=== PATIENT | male | born 1980 | race Caucasian/White ===

== ENCOUNTER 2016-11-16 08:13 | Emergency (ER) | payer BC, OTHER ==
[2016-11-16 08:19] VITALS: BP 132/79; PULSE 78; TEMP 98.2; BMI 23.1
[2016-11-16] MEDS ORDERED: KETOROLAC TROMETHAMINE 60 MG/2 ML VIAL IM ONE (08:58)
[2016-11-16] MEDS ORDERED: CYCLOBENZAPRINE HCL 10 MG TABLET (FP) PO ONE (08:58)
--- NOTE | 2016-11-16 08:58 | PDOC ---
History of Present Illness - General Chief Complaint: Pain Stated Complaint: Head/Neck problem Time Seen by Provider: 11/16/16 08:48 History Source: Patient Exam Limitations: No Limitations - History of Present Illness Initial Comments: 11/16/16 08:49 c/o pain and spasm to neck since last PM. was working yesterday turned and felt sort of a crack/pop to the right side of his neck muscles. States pain is preventing him from turning his head, was unable to sleep last night and has some radiating pain to his right shoulder and can radiate down to his back scapula. States pain is primarily on the right side, but has some translate pain to the left neck musculature also. 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 11/16/16 08:59 Occurred: reports: yesterday Severity: reports: moderate Pain Location: reports: back, neck Modifying Factors: improves with: None, pain medication Loss of Consciousness: no loss of consciousness Associated Symptoms (Fall): denies symptoms Past History - Travel Traveled outside of the country in the last 30 days: No Close contact w/someone who was outside of country & ill: No - Past Medical History Allergies/Adverse Reactions: Allergies Allergy/AdvReac Type Severity Reaction Status Date / Time No Known Allergies Allergy Verified 11/16/16 08:19 Home Medications: Ambulatory Orders Cyclobenzaprine HCl [Flexeril 10 mg] 10 mg PO BID PRN #14 tablet 11/16/16 Other medical history: NONE - Psycho/Social/Smoking Cessation Hx Anxiety: No Suicidal Ideation: No Smoking History: Never smoked Hx Alcohol Use: Yes (SOCIAL) Drug/Substance Use Hx: No Substance Use Type: None Review of Systems - Review of Systems Able to Perform ROS?: Yes Is the patient limited Urdu proficient: Yes Constitutional: Yes: Symptoms Reported, See HPI, Malaise. No: Chills, Fever HEENTM: Yes: See HPI. No: Symptoms Reported Respiratory: Yes: See HPI. No: Symptoms reported, Cough Musculoskeletal: Yes: Symptoms Reported, See HPI, Back Pain, Muscle Pain, Muscle Weakness Integumentary: No: Symptoms Reported Neurological: Yes: Symptoms reported, Tingling Psychiatric: No: Anxiety All Other Systems: Reviewed and Negative *Physical Exam - Vital Signs Last Vital Signs Temp Pulse Resp BP Pulse Ox 98.2 F 78 20 132/79 97 11/16/16 08:17 11/16/16 08:17 11/16/16 08:17 11/16/16 08:17 11/16/16 08:17 - Physical Exam General Appearance: Yes: Nourished, Appropriately Dressed, Apparent Distress, Moderate Distress HEENT: positive: OMAR, Normal ENT Inspection, TMs Normal, Pharynx Normal Neck: positive: Tender, Supple, Other (no vertebral tenderness, but tight musculature to the sternocleidomastoid worse on the right than the left with spasm palpated to the bellies of these muscles. Reproduced tenderness and tingling to right arm with pressure points at midpoint and radiating pain into upper trapezius and scapular area. Has no true bone tenderness crepitus or step- offs. Range of motion limited secondary to the spasm) Respiratory/Chest: positive: Lungs Clear. negative: Chest Tender, Normal Breath Sounds Cardiovascular: positive: Regular Rhythm Progress Note - Progress Note Progress Note: Cervical strain, will treat with NSAIDs and cyclobenzaprine *DC/Admit/Observation/Transfer Diagnosis at time of Disposition: Cervical myofascial strain Qualifiers: Encounter type: initial encounter Qualified Code(s): S16.1XXA - Strain of muscle, fascia and tendon at neck level, initial encounter - Discharge Dispostion Disposition: HOME Condition at time of disposition: Stable Admit: No - Patient Instructions Printed Discharge Instructions: DI for Cervical Muscle Strain Additional Instructions: Rest, no heavy lifting or exercise until pain is resolved Hot soaks to neck and low back as often as possible/hot showers or Jacuzzis No massage or therapy until spasm is gone Continue ibuprofen 2-200 mg tablets every 6 hours for the next 3 days then as needed for pain and swelling Cyclobenzaprine 1-10mg every 8 hours as needed for spasm If not significant improvement within 24 hours with medication and rest regime, followup with private physician for change in medications and /or therapy. - Post Discharge Activity Work/School Note: Back to Work
[2016-11-16] MEDS ORDERED: KETOROLAC TROMETHAMINE 60 MG/2 ML VIAL ONE (09:00)
[2016-11-16] MEDS ORDERED: CYCLOBENZAPRINE HCL 10 MG TABLET (FP) ONE (09:00)
== END 2016-11-16 09:28 | disposition home or self-care (01) ==
LOC: JERFT 08:13
PROC: 3E0233Z Introduction of Anti-inflammatory into Muscle, Percutaneous Approach (ICD-10-PCS; principal; 2016-11-16)
DX: S16.1XXA Strain of muscle, fascia and tendon at neck level, initial encounter (principal); X58.XXXA Exposure to other specified factors, initial encounter; Y93.9 Activity, unspecified; Y92.9 Unspecified place or not applicable
CPT/HCPCS: 99281-25